=== PATIENT | male | born 1980 | race Caucasian/White ===

== ENCOUNTER 2016-08-29 07:14 | Emergency (ER) | payer SELFPAY ==
[~2016-08-29] VITALS: Ht 170.2 cm; Wt 93.0 kg
[~2016-08-29 07:14] MED LIST: BACT800T5 PO; CEPH500C3 PO; IBUP800T23 PO; METH10TA PO
[2016-08-29 07:19] VITALS: BP 111/73; PULSE 67; RESP 16; TEMP 98.3; O2SAT 98
[2016-08-29] MEDS ORDERED: METH40TA PO (07:25)
[2016-08-29] MEDS ORDERED: PENI500T PO (07:32)
--- NOTE | 2016-08-29 07:34 | PD ---
HPI Chief Complaint: Oral / Dental Pain or Problem Time Seen by Provider: 07:27 Travel History International Travel<30 days: No Contact w/Intl Traveler<30days: No Traveled to known affect area: No History of Present Illness HPI This patient complains of dental pain. Location is left lower jaw. Duration 36 hours. Says he does not have a dentist so came here for antibiotics PFSH Past Medical History Hx Anticoagulant Therapy: No Cardiovascular Problems: No Chemotherapy: No Cerebrovascular Accident: No Diabetes: No Hepatitis: Yes (c) Respiratory: No ?: Not Past Surgical History Surgical History: No Previous Surgery Social History Alcohol Use: No Tobacco Use: Yes Substance Use: No Allergies-Medications (Allergen,Severity, Reaction): Coded Allergies: *MDRO Multi-Drug Resistant Organism (Verified Adverse Reaction, Unknown, ) MRSA (finger)-01/04/16 Reported Meds & Prescriptions Reported Meds & Active Scripts Active Reported Methadone (Methadone HCl) 40 Mg Tab 140 Mg PO DAILY Review of Systems General / Constitutional: No: Fever HENT: No: Headaches Cardiovascular: No: Chest Pain or Discomfort Physical Exam Narrative SKIN: Inspection shows no rash or ulcers. Palpation shows no induration or nodules. NECK: Symmetrical appearance, midline trachea. No mass or crepitus. Thyroid without enlargement, tenderness, or mass. Psych: Normal mood and affect. Normal insight and judgment. Oral cavity: Gingiva looks pink and healthy. No obvious abscess or drainage. The area where he has discomfort as missing several teeth that have been pulled. There are several other obvious carious teeth that are not hurting Data Data Last Documented VS Vital Signs Date Time Temp Pulse Resp B/P Pulse Ox O2 Delivery O2 Flow Rate FiO2 08/29/16 07:19 98.3 67 16 111/73 98 MDM Medical Decision Making Medical Screen Exam Complete: Yes Emergency Medical Condition: Yes Medical Record Reviewed: Yes Differential Diagnosis Dental cavity, gingivitis, abscess Narrative Course I have reviewed the patient's electronic medical record. I wrote him some Penicillin VK and recommended dental follow-up No obvious objective findings to explain his discomfort No visible facial swelling Diagnosis Primary Impression: Pain, dental Additional Instructions: The patient was advised to follow up with their physician and return if they worsen. Med/Other Pt SpecificInfo: Prescription(s) given Scripts Penicillin V Potassium 500 Mg Mwh035 Mg PO Q8H #20 TAB Ref 0 Prov:Stefan Roberts MD 08/29/16 Disposition: 01 DISCHARGE HOME Condition: Stable Stefan Roberts MD Aug 29, 2016 07:34
== END 2016-08-29 07:47 | disposition home or self-care (01) ==
LOC: PHED 07:14
DX: K08.89 Other specified disorders of teeth and supporting structures (principal); Z72.0 Tobacco use
CPT/HCPCS: 99282

== ENCOUNTER 2017-01-09 08:53 | Emergency (ER) | payer SELFPAY ==
[~2017-01-09] VITALS: Ht 170.2 cm; Wt 91.0 kg
[~2017-01-09 08:53] MED LIST changes: -BACT800T5 PO; -CEPH500C3 PO; -IBUP800T23 PO; -METH10TA PO; +METH40TA PO; +PENI500T PO
[2017-01-09 08:57] VITALS: BP 140/77; PULSE 95; RESP 16; TEMP 98.1; O2SAT 99
--- NOTE | 2017-01-09 09:38 | PD ---
HPI Chief Complaint: Skin Problem Time Seen by Provider: 09:24 Travel History International Travel<30 days: No Contact w/Intl Traveler<30days: No Traveled to known affect area: No History of Present Illness HPI 36yo M with PMH of PMH of IVDA and MRSA presents to the ED with c/o left hand swelling and pain after injecting mixture of crack cocaine and vinegar in his left hand a few days ago. Thinks he missed his vein. Pt has been using augmentin that he has at home and states the swelling has gone down and now more localized around left thumb. Denies any fever, chest pain, sob, n/v, abdominal pain, focal weakness or numbness. 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 SKIN: Focused skin assessment warm/dry. HEAD: Atraumatic. Normocephalic. EYES: Pupils equal and round. No scleral icterus. No injection or drainage. ENT: No nasal bleeding or discharge. Mucous membranes pink and moist. NECK: Trachea midline. No JVD. CARDIOVASCULAR: Regular rate and rhythm. No murmur appreciated. RESPIRATORY: No accessory muscle use. Clear to auscultation. Breath sounds equal bilaterally. GASTROINTESTINAL: Abdomen soft, non-tender, nondistended. MUSCULOSKELETAL: Left hand: Radial pulse 2+. +Marked erythema and edema in dorsum and volar aspect of left thumb. Good FROM in digits. Small mild fluctuance in dorsum of left 1st MCP. NEUROLOGICAL: Awake and alert. No obvious cranial nerve deficits. Motor grossly within normal limits. Normal speech. PSYCHIATRIC: Appropriate mood and affect; insight and judgment normal. Data Data Last Documented VS Vital Signs Date Time Temp Pulse Resp B/P Pulse Ox O2 Delivery O2 Flow Rate FiO2 01/09/17 08:57 98.1 95 16 140/77 99 Orders Basic Metabolic Panel (Bmp) (01/09/17 09:32) Complete Blood Count With Diff (01/09/17 09:32) Blood Culture (01/09/17 09:32) Iv Access Insert/Monitor (01/09/17 09:32) Vancomycin Inj (Vancomycin Inj) (01/09/17 09:45) Ct Hand W Iv Contrast (01/09/17 ) Ed Poc Ultrasound (01/09/17 ) Lactic Acid Sepsis Protocol (01/09/17 10:16) Iohexol 350 Inj (Omnipaque 350 Inj) (01/09/17 11:11) Lidocaine Pf 1% Inj (Xylocaine-Mpf 1% In (01/09/17 12:30) Labs Laboratory Tests Test 01/09/17 10:10 White Blood Count 6.6 TH/MM3 Red Blood Count 3.63 MIL/MM3 Hemoglobin 10.9 GM/DL Hematocrit 32.6 % Mean Corpuscular Volume 89.8 FL Mean Corpuscular Hemoglobin 30.0 PG Mean Corpuscular Hemoglobin 33.4 % Concent Red Cell Distribution Width 13.2 % Platelet Count 187 TH/MM3 Mean Platelet Volume 8.5 FL Neutrophils (%) (Auto) 78.2 % Lymphocytes (%) (Auto) 13.8 % Monocytes (%) (Auto) 5.8 % Eosinophils (%) (Auto) 1.8 % Basophils (%) (Auto) 0.4 % Neutrophils # (Auto) 5.2 TH/MM3 Lymphocytes # (Auto) 0.9 TH/MM3 Monocytes # (Auto) 0.4 TH/MM3 Eosinophils # (Auto) 0.1 TH/MM3 Basophils # (Auto) 0.0 TH/MM3 CBC Comment DIFF FINAL Differential Comment Sodium Level 142 MEQ/L Potassium Level 4.3 MEQ/L Chloride Level 107 MEQ/L Carbon Dioxide Level 28.6 MEQ/L Anion Gap 6 MEQ/L Blood Urea Nitrogen 14 MG/DL Creatinine 0.86 MG/DL Estimat Glomerular Filtration 101 ML/MIN Rate Random Glucose 107 MG/DL Lactic Acid Level 0.9 mmol/L Calcium Level 8.4 MG/DL MDM Medical Decision Making Medical Screen Exam Complete: Yes Emergency Medical Condition: Yes Differential Diagnosis Abscess vs. cellulitis Narrative Course 36yo M with left hand swelling, redness and pain after injecting himself with vinegar and cocaine but missing the vein. Pt is nontoxic appearing and redness and swelling has improved since he took an antibiotic that he had at home. Labs reviewed, no leukocytosis. Normal lactic acid. CT left hand with IV contrast showed elongated fluid collection along the dorsal aspect of the first metacarpal bone. There is diffuse soft tissue edema across the hand. I discussed case with carbon coating machine operator hand surgeon Dr. Peoples. He wanted me to attempt I &D and pack the wound and patient can follow up with him as an outpatient. I I& D over the area of fluctuance and there was a small amount of pus expressed. Pt instructed to follow up with hand surgery in 2 days for packing removal and wound check. Pt given vancomycin IV in the ED. Instructed pt to return to the ED if symptoms worsen. Procedures Procedure Narrative Emergency department US guided peripheral IV was performed with patient consent. Linear probe was used in the transverse views of the peripheral vein to assist with vascular access. INCISION AND DRAINAGE OF ABSCESS: The area was prepped and was sterilely draped. A subcutaneous wheal of 1 % Xylocaine with a total number 7 mL was used to anesthetize the area properly. A number 11 scalpel was used to make a 1 -cm incision across the area of the abscess. The abscess was drained, complex loculations were broken down, and irrigated with normal saline. Cultures were obtained. Half inch iodoform packing was placed in the wound. Sterile dressing applied. Patient advised to have packing removed in two days. Diagnosis Primary Impression: Abscess, hand Referrals: Kandace Peoples MD 2 days IVDA, s/p I&D left 1st MCP abscess Patient Instructions: General Instructions Departure Forms: Tests/Procedures Additional Instructions: Please follow up with Dr. Peoples in hand surgery in 2 days. Return to the ED immediately if symptoms worsen. Med/Other Pt SpecificInfo: Prescription(s) given Scripts Ibuprofen 600 Mg [id number] Mg PO Q8HR PRN (PAIN) #20 TAB Ref 0 Prov:Ailyn Parsons DO 01/09/17 Sulfamethoxazole-Trimethoprim (Bactrim DS)800-160 Mg Tab1 Tab PO BID #20 TAB Ref 0 Prov:Ailyn Parsons DO 01/09/17 Disposition: 01 DISCHARGE HOME Condition: Stable Ailyn Parsons DO Jan 09, 2017 09:38
[2017-01-09] MEDS ORDERED: VANCOMYCIN INJ 1,350 MG in SODIUM CHLORID 0.9% 500 ML INJ 500 ML IV ONE (09:45)
[2017-01-09 10:34] LABS: AUTOMATED NEUTROPHIL # 5.2 TH/MM3 (1.8-7.7); BASOPHIL % 0.4 % (0.0-2.0); EOSINOPHIL # 0.1 TH/MM3 (0-0.4); EOSINOPHIL % 1.8 % (0.0-4.0); HEMATOCRIT 32.6 % (39.0-51.0); HEMO FLAGS DIFF FINAL; LYMPH % 13.8 % (9.0-44.0); LYMPHOCYTE # 0.9 TH/MM3 (1.0-4.8); MEAN CELL VOLUME 89.8 FL (80.0-100.0); MEAN CORPUSCULAR HGB CONC 33.4 % (32.0-36.0); MONO % 5.8 % (0.0-8.0); NEUT % 78.2 % (16.0-70.0); PLATELET COUNT 187 TH/MM3 (150-450); RED BLOOD COUNT 3.63 MIL/MM3 (4.50-5.90); RED CELL DISTRIBUTION WIDTH 13.2 % (11.6-17.2); WHITE BLOOD COUNT 6.6 TH/MM3 (4.0-11.0)
[2017-01-09 10:35] LABS: POTASSIUM 4.3 MEQ/L (3.5-5.1)
[2017-01-09 10:38] LABS: BICARBONATE 28.6 MEQ/L (21.0-32.0)
[2017-01-09] MEDS ORDERED: IOHEXOL 350 MG/ML 10 ML VIAL (for RAD DIAG) IV ONE (11:11)
--- NOTE | 2017-01-09 11:22 | RADRPT ---
EXAM DATE/TIME: 01/09/2017 10:43 [facility] COMPARISON: No previous studies available for comparison. INDICATIONS : Swelling and redness to palmar surface of the left hand following IV drug use; evaluate for abscess. IV CONTRAST: 90 cc Omnipaque 350 (iohexol) IV RADIATION DOSE: 12.00 CTDIvol (mGy) MEDICAL HISTORY : Hepatitis C. Methicillin-resistant Staphylococcus aureus. SURGICAL HISTORY : None. ENCOUNTER: Initial ACUITY: 4 - 6 days PAIN SCALE: 4/10 LOCATION: Left hand. TECHNIQUE: Volumetric scanning of the hand was performed. Using automated exposure control and adjustment of th e mA and/or kV according to patient size, radiation dose was kept as low as reasonably achievable to obtain optimal diagnostic quality images. DICOM format image data is available electronically for re view and comparison. FINDINGS: BONES: No evidence of fracture. Alignment is within normal limits. JOINTS: No evidence of joint narrowing or effusion. SOFT TISSUES: There is marked diffuse soft tissue edema across the hand. The only questionable fluid collection is along the dorsal radial aspect along the first metacarpal bone with a elongated 6 x 16 mm fluid colle ction. Muscles, tendons, and neurovascular structures are grossly unremarkable. No evidence of mass, or foreign body. CONCLUSION: Elongated fluid collection along the dorsal aspect of the first metacarpal bone. There is diffuse so ft tissue edema across the hand. Jose L Cox MD on January 09, 2017 at 11:17 Board Certified Radiologist. This report was verified electronically.
[2017-01-09] MEDS ORDERED: LIDOCAINE HCL 1% PF 30 ML VIAL INFIL ONE (12:30)
[2017-01-09] MEDS ORDERED: KETOROLAC TROMETHAMINE 30 MG/ML (IVP) VIAL IV PUSH ONE (13:15)
[2017-01-09] MEDS ORDERED: BACT800T5 PO (13:19)
[2017-01-09] MEDS ORDERED: IBUP-232 PO (13:19)
[2017-01-09 13:22] VITALS: BP 126/79
== END 2017-01-09 13:43 | disposition home or self-care (01) ==
LOC: PHED 08:53
DX: L02.512 Cutaneous abscess of left hand (principal); B95.61 Methicillin susceptible Staphylococcus aureus infection as the cause of diseases classified elsewhere
CPT/HCPCS: 10061; 73201; 80048; 83605; 85025; 86403; 87040; 87070; 87186; 87205; 96365; 96366; 96375; 99285; J1885; J3370; J7040; Q9967